=== PATIENT | male | born 1975 ===

== ENCOUNTER 2016-12-27 07:21 | Emergency (ER) | payer SELFPAY ==
[2016-12-27 07:34] VITALS: BMI 27.1
[2016-12-27 07:36] VITALS: RESP 18
[2016-12-27] MEDS ORDERED: Ampicillin/Sulbactam 3 GM in Sodium Chloride 0.9% 100 ML IVPB STA (08:10)
--- NOTE | 2016-12-27 08:34 | ED PDOC ---
HPI: Skin/Bite Injury Time Seen by Provider: 12/27/16 07:30 Chief Complaint (Nursing): Abnormal Skin Integrity Chief Complaint (Provider): Right thigh abscess History Per: Patient History/Exam Limitations: no limitations Onset/Duration Of Symptoms: Days (x 3 days) Current Symptoms Are (Timing): Still Present Quality Of Symptoms: Draining Additional Complaint(s): Donta Raymond is a 41 y/o male who presents to the emergency department complaining of right thigh pain and redness, ongoing for 3 days. Patient denies fever, and injury or trauma to the area. He states having been treated for abscesses in the past. Patient noticed purulent drainage from the area with redness earlier today while showering. PMD: Unknown Past Medical History Reviewed: Historical Data, Nursing Documentation, Vital Signs Vital Signs: Last Vital Signs Temp 99.2 F 12/27/16 11:55 Pulse 79 12/27/16 11:55 Resp 18 12/27/16 11:55 BP 108/72 12/27/16 11:55 Pulse Ox 99 12/27/16 11:55 - Medical History PMH: Gastritis, GERD - Surgical History Surgical History: Cholecystectomy Other surgeries: left knee I&D - Family History Family History: States: Unknown Family Hx - Social History Current smoker - smoking cessation education provided: No Alcohol: Occasional Drugs: Denies - Home Medications Home Medications: Ambulatory Orders Medication Instructions Recorded Ketorolac Tromethamine [Toradol] 10 mg PO Q6H PRN #20 tab 06/09/16 Cephalexin [Keflex] 500 mg PO QID #28 capsule 12/27/16 Sulfamethoxazole/Trimethoprim 1 tab PO BID #14 tab 12/27/16 [Bactrim DS 800 mg-160 mg] - Allergies Allergies/Adverse Reactions: Allergies Allergy/AdvReac Type Severity Reaction Status Date / Time No Known Allergies Allergy Verified 12/27/16 07:39 Review of Systems ROS Statement: Except As Marked, All Systems Reviewed And Found Negative Constitutional: Negative for: Fever, Other (Injury, trauma) Musculoskeletal: Positive for: Leg Pain (Right thigh pain and associated redness ) Physical Exam - Reviewed Nursing Documentation Reviewed: Yes Vital Signs Reviewed: Yes - Physical Exam Appears: Positive for: Well, Non-toxic, No Acute Distress Head Exam: Positive for: ATRAUMATIC, NORMAL INSPECTION, NORMOCEPHALIC Skin: Positive for: Normal Color, Warm, Dry Eye Exam: Positive for: EOMI, Normal appearance, PERRL Neck: Positive for: Normal, Painless ROM, Supple Gastrointestinal/Abdominal: Positive for: Soft Back: Positive for: Normal Inspection. Negative for: Vertebral Tenderness Extremity: Positive for: Normal ROM, Other (Right thigh: Abscess 2 cm x 2 cm, surrounded by induration and cellulitis that streaks 2 in down the thigh. It is warm, red, without genital involvement) Neurologic/Psych: Positive for: Alert, Oriented - ECG O2 Sat by Pulse Oximetry: 98 (RA) Pulse Ox Interpretation: Normal Medical Decision Making Medical Decision Making: Time: 08:10 Initial Impression: Abscess, right thigh plus cellulitis Initial Plan: --Vancomycin 1gm/250ml IV NS --Unasyn 3gm/100ml IV NS --Patient to continue draining abscess at home/warm compresses Time: 09:40 Clinical Impression: Cellulitis, Abscess Upon provider reevaluation patient is medically stable, and requires no further treatment in the ED at this time. Patient will be discharged with Rx for Keflex 500 mg PO QID for 7 days. Counseling was provided and all questions were answered regarding diagnosis and instructions to return to ED for wound check in 2 days to ensure cellulitis is improving. There is agreement to discharge plan. Return if symptoms persist or worsen. Scribe Attestation: Documented by Nelly Gibbs, acting as a scribe for Tj Burnett MD Provider Scribe Attestation: All medical record entries made by the Scribe were at my direction and personally dictated by me. I have reviewed the chart and agree that the record accurately reflects my personal performance of the history, physical exam, medical decision making, and the department course for this patient. I have also personally directed, reviewed, and agree with the discharge instructions and disposition. Disposition - Clinical Impression Clinical Impression: Cellulitis, Abscess - Patient ED Disposition Is Patient to be Admitted: No Doctor Will See Patient In The: ED Counseled Patient/Family Regarding: Diagnosis, Need For Followup, Rx Given - Disposition Referrals: [facility] [Outside] Disposition: Routine/Home Disposition Time: 09:00 Condition: IMPROVED Additional Instructions: follow up in 2 days for wound check to be sure that the redness has decreased and cellulitis improved. continue allowing the pus to drain from the abscess apply warm compresses to the site return to the ED sooner with any worsening or concerning symptoms. Prescriptions: Cephalexin [Keflex] 500 mg PO QID #28 capsule Sulfamethoxazole/Trimethoprim [Bactrim DS 800 mg-160 mg] 1 tab PO BID #14 tab Instructions: Cellulitis (ED), Abscess (ED) Print Language: YEMENI
[2016-12-27 11:56] VITALS: BP 108/72; PULSE 79; TEMP 99.2
[2016-12-27 16:50] VITALS: O2SAT 98
== END 2016-12-27 12:30 | disposition home or self-care (01) ==
LOC: H.ER 07:21
DX: L02.415 Cutaneous abscess of right lower limb (principal); L03.115 Cellulitis of right lower limb; K21.9 Gastro-esophageal reflux disease without esophagitis

== ENCOUNTER 2017-11-22 21:56 | Emergency (ER) | payer SELFPAY ==
[2017-11-22 21:56] VITALS: BMI 27.1
[2017-11-22 22:04] VITALS: BP 132/80; PULSE 77; RESP 16; TEMP 98.5; O2SAT 99
[2017-11-22] MEDS ORDERED: Tdap Vaccine 0.5 ml Vial (10-64 yrs) IM ONE (22:08)
--- NOTE | 2017-11-22 22:14 | ED PDOC ---
Lower Extremity Pain/Injury Time Seen by Provider: 11/22/17 22:05 Chief Complaint (Nursing): Lower Extremity Problem/Injury Chief Complaint (Provider): Puncture Wound History Per: Patient History/Exam Limitations: no limitations Onset/Duration Of Symptoms: Hrs Current Symptoms Are (Timing): Still Present Severity: Mild Pain Scale Rating Of: 4 Additional Complaint(s): Patient is a 42 year old male who presents to ED and states while he was walking at 2pm today, a screw punctured the bottom of his work boot and his left foot. Patient reports localized, mild pain. 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 Patient has no other complaints at present. Unknown tetanus status. PMD: none Past Medical History Reviewed: Historical Data, Nursing Documentation, Vital Signs Vital Signs: Last Vital Signs Temp 98.5 F 11/22/17 22:01 Pulse 77 11/22/17 22:01 Resp 16 11/22/17 22:01 BP 132/80 11/22/17 22:01 Pulse Ox 99 11/22/17 22:01 - Medical History PMH: Gastritis, GERD - Surgical History Surgical History: Cholecystectomy - Family History Family History: States: Unknown Family Hx - Social History Current smoker - smoking cessation education provided: Yes (1 cig/month) Alcohol: None Drugs: Denies - Home Medications Home Medications: Ambulatory Orders Medication Instructions Recorded Ketorolac Tromethamine [Toradol] 10 mg PO Q6H PRN #20 tab 06/09/16 Cephalexin [Keflex] 500 mg PO QID #28 capsule 12/27/16 Sulfamethoxazole/Trimethoprim 1 tab PO BID #14 tab 12/27/16 [Bactrim DS 800 mg-160 mg] Ciprofloxacin [Cipro] 500 mg PO BID #10 tab 11/22/17 Naproxen 500 mg PO BID #20 tab 11/22/17 - Allergies Allergies/Adverse Reactions: Allergies Allergy/AdvReac Type Severity Reaction Status Date / Time No Known Allergies Allergy Verified 12/27/16 07:39 Review of Systems ROS Statement: Except As Marked, All Systems Reviewed And Found Negative Musculoskeletal: Positive for: Foot Pain (left) Physical Exam - Reviewed Nursing Documentation Reviewed: Yes Vital Signs Reviewed: Yes - Physical Exam Appears: Positive for: Well, Non-toxic, No Acute Distress Head Exam: Positive for: NORMOCEPHALIC Skin: Positive for: Normal Color, Warm, Dry Eye Exam: Positive for: EOMI, PERRL ENT: Positive for: Other (Mucus membranes moist. Airway patent (-) stridor.) Neck: Positive for: Painless ROM, Supple Cardiovascular/Chest: Positive for: Regular Rate, Rhythm Respiratory: Positive for: Normal Breath Sounds. Negative for: Decreased Breath Sounds, Accessory Muscle Use, Respiratory Distress Extremity: Positive for: Normal ROM (of left foot, ankle, and knee), Tenderness (to distal plantar left foot immediately surrounding puncture wound), Capillary Refill (intact), Other (2mm puncture wound to distal plantar aspect of left foot (-) active bleeding (-) erythema (-) surrounding cellulitis (-) discharge/ drainage. Sensation intact). Negative for: Pedal Edema, Calf Tenderness, Deformity, Swelling Neurologic/Psych: Positive for: Alert, Oriented (x3), Gait (steady in ED). Negative for: Aphasia, Facial Droop - ECG O2 Sat by Pulse Oximetry: 99 (RA) Pulse Ox Interpretation: Normal Medical Decision Making Medical Decision Making: Clinical Impression: Puncture wound of foot Plan: -Tetanus IM -Naproxen 500mg PO -Re-evaluation -Consult to podiatry 2214 Case discussed with podiatry resident(Dr Issa) who recommends treatment with Cipro PO and outpatient follow up with podiatry clinic. Ciprofloxacin 500mg PO ordered. 2234 On re-evaluation, patient reports improvement of symptoms. On exam, patient remains AAOx3, in no acute distress. On exam, neck is supple, lungs CTA, cardiac RRR, neuro exam shows no focal findings. VSS, stable for discharge. Diagnostic results d/w the patient in great detail. Dx of puncture wound to foot d/w the patient. Educated on wound care. Based on history, exam and diagnostic results plan will be for outpatient follow up with podiatry. Advised to follow up with clinic / podiatry clinic in 1-2 days without fail. Advised to take medication as prescribed. Return to the emergency room at any time for any new or worsening symptoms. Patient states he fully agrees with and understands discharge instructions. States that he agrees with the plan and disposition. Verbalized and repeated discharge instructions and plan. I have given the patient opportunity to ask any additional questions. Disposition - Clinical Impression Clinical Impression: Puncture wound of foot, left - Patient ED Disposition Is Patient to be Admitted: No Counseled Patient/Family Regarding: Diagnosis, Need For Followup, Rx Given - Disposition Referrals: Podiatry Clinic [Outside] [facility] [Outside] Disposition: Routine/Home Disposition Time: 22:39 Condition: STABLE Additional Instructions: FOLLOW UP WITH PODIATRY CLINIC DIRECTED. RETURN TO ED WITH ANY NEW OR WORSENING SYMPTOMS. Prescriptions: Ciprofloxacin [Cipro] 500 mg PO BID #10 tab Naproxen 500 mg PO BID #20 tab Instructions: Wound Care Forms: [facility] (French) Print Language: BURKINAN - POA Present On Arrival: Falls Or Trauma
[2017-11-22] MEDS ORDERED: Naproxen 500 MG TAB PO STA (22:38)
== END 2017-11-22 22:59 | disposition home or self-care (01) ==
LOC: H.ER 21:56
DX: S91.332A Puncture wound without foreign body, left foot, initial encounter (principal); W26.8XXA Contact with other sharp object(s), not elsewhere classified, initial encounter; Y92.89 Other specified places as the place of occurrence of the external cause; F17.200 Nicotine dependence, unspecified, uncomplicated; K21.9 Gastro-esophageal reflux disease without esophagitis

== ENCOUNTER 2018-02-01 19:46 | Emergency (ER) | payer OTHER ==
[2018-02-01 20:12] VITALS: BMI 27.4
[2018-02-01 20:15] VITALS: BP 112/75; PULSE 77; RESP 16; TEMP 98.4; O2SAT 99
--- NOTE | 2018-02-01 20:39 | ED PDOC ---
Upper Extremity Pain/Injury Time Seen by Provider: 02/01/18 20:05 Chief Complaint (Nursing): Abnormal Skin Integrity Chief Complaint (Provider): Abnormal Skin Integrity History Per: Patient History/Exam Limitations: no limitations Onset/Duration Of Symptoms: Days (x4) Current Symptoms Are (Timing): Still Present Additional Complaint(s): 42 year old male presents to the ED complaining of an insect bite to his left forearm that has been getting worse for the last 4 days. Patient states he had pulled on the scab but the bite has gotten worse. He reports pain, swelling and erythema but denies fever, chills, and pus. PMD: none provided Past Medical History Reviewed: Historical Data, Nursing Documentation, Vital Signs Vital Signs: Last Vital Signs Temp 98.4 F 02/01/18 20:12 Pulse 77 02/01/18 20:12 Resp 16 02/01/18 20:12 BP 112/75 02/01/18 20:12 Pulse Ox 99 02/01/18 20:12 - Medical History PMH: Gastritis, GERD - Surgical History Surgical History: Cholecystectomy - Family History Family History: States: Unknown Family Hx - Living Arrangements Living Arrangements: With Family - Social History Current smoker - smoking cessation education provided: No - Home Medications Home Medications: Ambulatory Orders Medication Instructions Recorded Ketorolac Tromethamine [Toradol] 10 mg PO Q6H PRN #20 tab 06/09/16 Cephalexin [Keflex] 500 mg PO QID #28 capsule 12/27/16 Sulfamethoxazole/Trimethoprim 1 tab PO BID #14 tab 12/27/16 [Bactrim DS 800 mg-160 mg] Ciprofloxacin [Cipro] 500 mg PO BID #10 tab 11/22/17 Naproxen 500 mg PO BID #20 tab 11/22/17 Clindamycin [Cleocin] 300 mg PO QID #40 cap 02/01/18 - Allergies Allergies/Adverse Reactions: Allergies Allergy/AdvReac Type Severity Reaction Status Date / Time No Known Allergies Allergy Verified 12/27/16 07:39 Review of Systems ROS Statement: Except As Marked, All Systems Reviewed And Found Negative Skin: Positive for: Other (Abnormal skin integrity to left forearm) Physical Exam - Reviewed Nursing Documentation Reviewed: Yes Vital Signs Reviewed: Yes - Physical Exam Appears: Positive for: Non-toxic, No Acute Distress Head Exam: Positive for: ATRAUMATIC, NORMOCEPHALIC Skin: Positive for: Normal Color, Warm, Dry Eye Exam: Positive for: Normal appearance Neck: Positive for: Normal, Painless ROM Cardiovascular/Chest: Negative for: Bradycardia, Tachycardia Respiratory: Negative for: Respiratory Distress Extremity: Positive for: Normal ROM, Other (3cm indurated abscess with surrounding erythema) Neurologic/Psych: Positive for: Alert, Oriented. Negative for: Motor/Sensory Deficits - ECG O2 Sat by Pulse Oximetry: 99 (RA) Pulse Ox Interpretation: Normal Medical Decision Making Medical Decision Making: Initial Impression: Abnormal skin integrity to left forearm Scribe Attestation: Documented by Jus Cisneros acting as a scribe for Alisha MCGRATH. Provider Scribe Attestation: All medical record entries made by the Scribe were at my direction and personally dictated by me. I have reviewed the chart and agree that the record accurately reflects my personal performance of the history, physical exam, medical decision making, and the department course for this patient. I have also personally directed, reviewed, and agree with the discharge instructions and disposition. Disposition - Clinical Impression Clinical Impression: Cellulitis - Patient ED Disposition Is Patient to be Admitted: No - Disposition Disposition: Routine/Home Disposition Time: 20:25 Condition: GOOD Prescriptions: Clindamycin [Cleocin] 300 mg PO QID #40 cap Instructions: Cellulitis and Erysipelas (Skin Infections) Forms: [employer] (Armenian)
== END 2018-02-01 20:42 | disposition home or self-care (01) ==
LOC: H.ER 19:46
DX: L03.114 Cellulitis of left upper limb (principal)